=== PATIENT | female | born 1985 | race Hispanic/Latino ===

== ENCOUNTER 2017-05-13 22:35 | Emergency (ER) | payer OTHER, SELFPAY ==
[2017-05-13 23:46] LABS: BASOPHILS % (AUTO) 0.4 % (0.0-5.0); EOSINOPHILS % (AUTO) 0.3 % (0.0-8.0); HEMATOCRIT 41.9 % (36-48); LYMPHOCYTES % (AUTO) 21.9 % (21.0-51.0); MEAN CORPUSCULAR HEMOGLOBIN 30.4 pg (27.0-33.0); MEAN CORPUSCULAR HGB CONC 33.9 g/dL (32.0-36.0); MEAN CORPUSCULAR VOLUME 89.8 fL (79-99); MONOCYTES % (AUTO) 6.9 % (3.0-13.0); NEUTROPHILS % (AUTO) 70.5 % (40.0-77.0); PLATELET COUNT (AUTO) 240 K/uL (130-400); RED BLOOD CELL COUNT(AUTO) 4.67 MIL/uL (4.00-5.50); RED CELL DISTRIBUTION WIDTH 13.4 % (11.0-15.5); WHITE BLOOD COUNT (AUTO) 6.5 K/uL (4.8-10.8)
[2017-05-13 23:53] LABS: CREATININE 0.9 mg/dL (0.5-1.5)
[2017-05-13 23:55] LABS: APPEARANCE,URINE Clear (CLEAR); BILIRUBIN,URINE Negative (NEGATIVE); COLOR,URINE Yellow (YELLOW); GLUCOSE, URINE (UA) Negative (NEGATIVE); KETONES,URINE Trace mg/dL (NEGATIVE); LEUKOCYTE ESTERASE ,URINE Small (NEGATIVE); NITRATE,URINE Negative (NEGATIVE); OCCULT BLOOD,URINE Negative (NEGATIVE); PROTEIN,URINE Negative (NEGATIVE); UROBILINOGEN,URINE 0.2 mg/dL (0.2-1.0)
[2017-05-13 23:57] LABS: HCG,QUAL RESULT NEGATIVE (NEGATIVE)
[2017-05-13 23:57] LABS: ALBUMIN 4.1 g/dL (3.5-5.0); BILIRUBIN,TOTAL 0.2 mg/dL (0.2-1.0); TOTAL PROTEIN, SERUM 7.3 g/dL (6.0-8.3)
[2017-05-13] MEDS ORDERED: DiphenhydrAMINE HCL 50 MG/ML VIAL ONE (23:57)
[2017-05-13] MEDS ORDERED: PROCHLORPERAZINE EDISYLATE 10 MG/2 ML VIAL ONE (23:57)
[2017-05-13] MEDS ORDERED: SODIUM CHLORIDE 0.9% 500ML 500 ML IV ONE (23:57)
[2017-05-14 00:04] LABS: BACTERIA,URINE None Seen /HPF (None Seen); RBC,URINE None Seen /HPF (0-1); SQUAMOUS EPITHELIAL CELL,UR Rare /LPF (0-2); WBC,URINE 0-1 /HPF (0-1)
[2017-05-14] MEDS ORDERED: KETOROLAC TROMETHAMINE 30MG/ML ONE (01:04)
== END 2017-05-14 01:26 | disposition home or self-care (01) ==
LOC: EDH 22:35
DX: G43.909 Migraine, unspecified, not intractable, without status migrainosus (principal); J45.909 Unspecified asthma, uncomplicated; Z88.8 Allergy status to other drugs, medicaments and biological substances
CPT/HCPCS: 36415; 80053; 81001; 81025; 85025; 96374; 96375; 99284; J0780; J1200; J1885; J7040

== ENCOUNTER 2018-03-29 19:46 | Emergency (ER) | payer SELFPAY ==
[2018-03-29] MEDS ORDERED: SODIUM CHLORIDE 0.9% 1000ML 1,000 ML IV ONE (20:24)
[2018-03-29] MEDS ORDERED: METOCLOPRAMIDE 10 MG/2 ML VIAL ONE (20:24)
[2018-03-29] MEDS ORDERED: MORPHINE SULFATE 2 MG/ML 1ML SYG ONE (20:24)
[2018-03-29] MEDS ORDERED: ONDANSETRON HCL 4 MG/2 ML VIAL ONE (20:24)
[2018-03-29 20:42] LABS: BASOPHILS % (AUTO) 1.5 % (0.0-5.0); EOSINOPHILS % (AUTO) 0.8 % (0.0-8.0); HEMATOCRIT 43.2 % (36-48); LYMPHOCYTES % (AUTO) 37.2 % (21.0-51.0); MEAN CORPUSCULAR HGB CONC 34.6 g/dL (32.0-36.0); MEAN CORPUSCULAR VOLUME 89.6 fL (79-99); MONOCYTES % (AUTO) 7.9 % (3.0-13.0); NEUTROPHILS % (AUTO) 52.6 % (40.0-77.0); PLATELET COUNT (AUTO) 275 K/uL (130-400); RED BLOOD CELL COUNT(AUTO) 4.82 MIL/uL (4.00-5.50); RED CELL DISTRIBUTION WIDTH 13.6 % (11.0-15.5); WHITE BLOOD COUNT (AUTO) 4.2 K/uL (4.8-10.8)
[2018-03-29 20:58] LABS: CREATININE 0.7 mg/dL (0.5-1.5)
[2018-03-29 20:58] LABS: APPEARANCE,URINE CLEAR (CLEAR); BILIRUBIN,URINE NEGATIVE (NEGATIVE); COLOR,URINE YELLOW (YELLOW); GLUCOSE, URINE (UA) NEGATIVE (NEGATIVE); KETONES,URINE NEGATIVE (NEGATIVE); LEUKOCYTE ESTERASE ,URINE NEGATIVE (NEGATIVE); NITRATE,URINE NEGATIVE (NEGATIVE); OCCULT BLOOD,URINE NEGATIVE (NEGATIVE); PROTEIN,URINE NEGATIVE (NEGATIVE); UROBILINOGEN,URINE 0.2 mg/dL (0.2-1.0)
[2018-03-29 21:00] LABS: HCG,QUAL RESULT NEGATIVE (NEGATIVE)
[2018-03-29 21:09] LABS: BILIRUBIN,TOTAL 0.4 mg/dL (0.2-1.0); TOTAL PROTEIN, SERUM 7.5 g/dL (6.0-8.3)
[2018-03-29 21:10] LABS: ALBUMIN 4.4 g/dL (3.5-5.0)
[2018-03-29] MEDS ORDERED: IOHEXOL-350 75 ML VIAL IV ONE (21:23)
[2018-03-29] MEDS ORDERED: DiphenhydrAMINE HCL 50 MG/ML VIAL ONE (22:49)
== END 2018-03-29 23:18 | disposition home or self-care (01) ==
LOC: EDH 19:46
DX: E86.9 Volume depletion, unspecified (principal); R10.2 Pelvic and perineal pain; R11.2 Nausea with vomiting, unspecified; J45.909 Unspecified asthma, uncomplicated; G43.909 Migraine, unspecified, not intractable, without status migrainosus; Z98.890 Other specified postprocedural states
CPT/HCPCS: 36415; 74177; 80053; 81003; 81025; 83690; 85025; 96361; 96374; 96375; 99284; J1200; J2405; J2765; J7030; Q9967

== ENCOUNTER 2018-07-15 23:27 | Emergency (ER) | payer OTHER ==
[2018-07-16 01:02] LABS: BASOPHILS % (AUTO) 1.1 % (0.0-5.0); EOSINOPHILS % (AUTO) 3.5 % (0.0-8.0); HEMATOCRIT 43.3 % (36-48); LYMPHOCYTES % (AUTO) 36.5 % (21.0-51.0); MEAN CORPUSCULAR HEMOGLOBIN 30.4 pg (27.0-33.0); MEAN CORPUSCULAR HGB CONC 33.6 g/dL (32.0-36.0); MEAN CORPUSCULAR VOLUME 90.5 fL (79-99); NEUTROPHILS % (AUTO) 51.9 % (40.0-77.0); NUCLEATED RED BLOOD CELLS 0.1 % (0.0-0.19); PLATELET COUNT (AUTO) 260 K/uL (130-400); RED BLOOD CELL COUNT(AUTO) 4.79 MIL/uL (4.00-5.50); RED CELL DISTRIBUTION WIDTH 13.2 % (11.0-15.5); WHITE BLOOD COUNT (AUTO) 3.6 K/uL (4.8-10.8)
[2018-07-16 01:05] LABS: APPEARANCE,URINE Clear (CLEAR); BILIRUBIN,URINE Negative (NEGATIVE); COLOR,URINE Yellow (YELLOW); GLUCOSE, URINE (UA) Negative (NEGATIVE); KETONES,URINE Negative (NEGATIVE); LEUKOCYTE ESTERASE ,URINE Small (NEGATIVE); NITRATE,URINE Negative (NEGATIVE); OCCULT BLOOD,URINE Negative (NEGATIVE); PROTEIN,URINE Negative (NEGATIVE); UROBILINOGEN,URINE 0.2 mg/dL (0.2-1.0)
[2018-07-16 01:09] LABS: HCG,QUAL RESULT NEGATIVE (NEGATIVE)
[2018-07-16 01:10] LABS: CARBON DIOXIDE 22 mmol/L (21-32); CHLORIDE 105 mmol/L (101-111); CREATININE 0.6 mg/dL (0.5-1.5); GLOMERULAR FILTR. RATE CALC 124 mL/min (>60); GLUCOSE,RANDOM 83 mg/dL (70-105); POTASSIUM 4.4 mmol/L (3.5-5.1); SODIUM SERUM 136 mmol/L (136-145); UREA NITROGEN, BLOOD 15 mg/dL (7-18)
[2018-07-16 01:13] LABS: BACTERIA,URINE None Seen /HPF (None Seen); MUCUS,URINE Moderate LPF (None Seen); RBC,URINE 0-1 /HPF (0-1); SQUAMOUS EPITHELIAL CELL,UR Moderate /HPF (0-2)
[2018-07-16 01:15] LABS: ALANINE AMINOTRANSFERASE 18 U/L (12-78); ASPARTATE AMINOTRANSFERASE 36 U/L (10-37); BILIRUBIN,DIRECT < 0.1 mg/dL (0.0-0.3); BILIRUBIN,TOTAL 0.2 mg/dL (0.2-1.0); TOTAL PROTEIN, SERUM 7.6 g/dL (6.0-8.3)
[2018-07-16] MEDS ORDERED: KETOROLAC TROMETHAMINE 30MG/ML ONE (01:39)
[2018-07-16] MEDS ORDERED: IOHEXOL-350 75 ML VIAL IV ONE (01:44)
[2018-07-16] MEDS ORDERED: MORPHINE SULFATE 4 MG/1ML SYG ONE ×2 (04:52→05:25)
== END 2018-07-16 06:28 | disposition home or self-care (01) ==
LOC: EDH 23:27
DX: N83.201 Unspecified ovarian cyst, right side (principal); J45.909 Unspecified asthma, uncomplicated; G43.909 Migraine, unspecified, not intractable, without status migrainosus; Z88.8 Allergy status to other drugs, medicaments and biological substances
CPT/HCPCS: 36415; 74177; 76830; 76856; 80048; 80076; 81001; 81025; 85025; 96374; 96375; 96376; 99284; J1885; J2270 ×2; Q9967

== ENCOUNTER 2019-01-27 17:00 | Emergency (ER) | payer OTHER ==
[2019-01-27 17:20] LABS: APPEARANCE,URINE Clear (CLEAR); BILIRUBIN,URINE Negative (NEGATIVE); COLOR,URINE Yellow (YELLOW); GLUCOSE, URINE (UA) Negative (NEGATIVE); KETONES,URINE Negative (NEGATIVE); LEUKOCYTE ESTERASE ,URINE Trace (NEGATIVE); NITRATE,URINE Negative (NEGATIVE); OCCULT BLOOD,URINE Negative (NEGATIVE); PH,URINE 5.5 (5.0-8.0); PROTEIN,URINE Negative (NEGATIVE); UROBILINOGEN,URINE 0.2 mg/dL (0.2-1.0)
[2019-01-27 17:27] LABS: HCG,QUAL RESULT NEGATIVE (NEGATIVE)
[2019-01-27 17:28] LABS: AMPHET/METH SCREEN,URINE NEGATIVE (NEGATIVE); BARBITURATE SCREEN, URINE POSITIVE (NEGATIVE); BENZODIAZEPINES SCREEN,URINE NEGATIVE (NEGATIVE); CANNABINOID SCREEN,URINE NEGATIVE (NEGATIVE); COCAINE SCREEN,URINE NEGATIVE (NEGATIVE); OPIATE SCREEN,URINE NEGATIVE (NEGATIVE); PHENCYCLIDINE SCREEN,URINE NEGATIVE (NEGATIVE)
[2019-01-27] MEDS ORDERED: SODIUM CHLORIDE 0.9% 1000ML 1,000 ML IV ONE (17:28)
[2019-01-27] MEDS ORDERED: METOCLOPRAMIDE 10 MG/2 ML VIAL ONE (17:28)
[2019-01-27] MEDS ORDERED: KETOROLAC TROMETHAMINE 15MG/ML ONE (17:28)
[2019-01-27 17:37] LABS: BACTERIA,URINE Rare /HPF (None Seen); MUCUS,URINE Rare LPF (None Seen); RBC,URINE 0-1 /HPF (0-1); SQUAMOUS EPITHELIAL CELL,UR Few /HPF (0-2)
[2019-01-27 17:37] LABS: BASOPHILS % (AUTO) 0.9 % (0.0-5.0); EOSINOPHILS % (AUTO) 0.9 % (0.0-8.0); HEMATOCRIT 44.2 % (36-48); LYMPHOCYTES % (AUTO) 30.8 % (21.0-51.0); MEAN CORPUSCULAR HEMOGLOBIN 31.4 pg (27.0-33.0); MEAN CORPUSCULAR VOLUME 92.3 fL (79-99); NEUTROPHILS % (AUTO) 62.4 % (40.0-77.0); PLATELET COUNT (AUTO) 217 K/uL (130-400); RED BLOOD CELL COUNT(AUTO) 4.79 MIL/uL (4.00-5.50); RED CELL DISTRIBUTION WIDTH 13.7 % (11.0-15.5); WHITE BLOOD COUNT (AUTO) 4.5 K/uL (4.8-10.8)
[2019-01-27 17:47] LABS: CREATININE 0.8 mg/dL (0.5-1.5)
[2019-01-27 17:51] LABS: ALBUMIN 4.1 g/dL (3.5-5.0); BILIRUBIN,TOTAL 0.3 mg/dL (0.2-1.0); TOTAL PROTEIN, SERUM 7.7 g/dL (6.0-8.3)
== END 2019-01-27 20:34 | disposition home or self-care (01) ==
LOC: EDH 17:00
DX: R10.2 Pelvic and perineal pain (principal); J45.909 Unspecified asthma, uncomplicated; G43.909 Migraine, unspecified, not intractable, without status migrainosus; Z88.8 Allergy status to other drugs, medicaments and biological substances; Z98.890 Other specified postprocedural states
CPT/HCPCS: 36415; 76830; 80053; 80305; 81001; 81025; 83690; 85025; 96374; 96375; 99285; J1885; J2765; J7030

== ENCOUNTER 2023-10-28 20:05 | Emergency (ER) | payer OTHER ==
[~2023-10-28] VITALS: Ht 160 cm; Wt 49.0 kg
[2023-10-28 20:48] LABS: APPEARANCE,URINE CLEAR (CLEAR); BILIRUBIN,URINE NEGATIVE (NEGATIVE); COLOR,URINE COLORLESS (YELLOW); GLUCOSE, URINE (UA) NEGATIVE (NEGATIVE); KETONES,URINE NEGATIVE (NEGATIVE); LEUKOCYTE ESTERASE ,URINE NEGATIVE Leu/uL (NEGATIVE); NITRATE,URINE NEGATIVE (NEGATIVE); OCCULT BLOOD,URINE SMALL (NEGATIVE); PROTEIN,URINE NEGATIVE (NEGATIVE); UROBILINOGEN,URINE 0.2 mg/dL (0.2-1.0)
[2023-10-28 20:50] LABS: ADD UA MICROSCOPIC YES
[2023-10-28 21:02] LABS: BASOPHILS # (AUTO) 0.04 K/uL (0.00-0.20); BASOPHILS % (AUTO) 0.7 % (0.0-5.0); EOSINOPHILS # (AUTO) 0.12 K/uL (0.00-0.70); HEMATOCRIT 44.4 % (36-48); IMMATURE GRANULOCYTE ABSOLUTE 0.03 K/uL (0-1); LYMPHOCYTES # (AUTO) 2.1 K/uL (1.0-4.8); LYMPHOCYTES % (AUTO) 34.4 % (21.0-51.0); MEAN CORPUSCULAR HEMOGLOBIN 30.2 pg (27.0-33.0); MEAN CORPUSCULAR HGB CONC 33.6 g/dL (32.0-36.0); MEAN CORPUSCULAR VOLUME 89.9 fL (79-99); MONOCYTES # (AUTO) 0.4 K/uL (0.1-1.0); MONOCYTES % (AUTO) 5.8 % (3.0-13.0); NEUTROPHILS # (AUTO) 3.4 K/uL (1.8-7.7); NEUTROPHILS % (AUTO) 56.6 % (40.0-77.0); PLATELET COUNT (AUTO) 289 K/uL (130-400); RED BLOOD CELL COUNT(AUTO) 4.94 MIL/uL (4.00-5.50); RED CELL DISTRIBUTION WIDTH 12.6 % (11.0-15.5)
[2023-10-28 21:04] LABS: RBC,URINE 0-1 /HPF (0-1); SQUAMOUS EPITHELIAL CELL,UR FEW /HPF (0-2); WBC,URINE 0-1 /HPF (0-1)
[2023-10-28] MEDS: 0.9%NACL 1000ML 1,000 ML IV ONE (21:10)
[2023-10-28] MEDS: KETOROLAC 30MG VIAL (30MG/ML) IVP ONE (21:10)
[2023-10-28 21:16] LABS: CREATININE 0.8 mg/dL (0.5-1.0); POTASSIUM 4.1 mmol/L (3.5-5.1)
[2023-10-28] MEDS ORDERED: IBUP-2071 PO (21:46)
[2023-10-28] MEDS: ONDANSETRON 4MG INJ IVP ONE (22:08)
[2023-10-28] MEDS: MORPHINE 2 MG SYG IVP ONE (22:08)
[2023-10-28] MEDS: HYDROCODONE/ACETAMINOPHEN 5/325 MG TAB PO ONE (22:52)
[2023-10-28] MEDS: KETOROLAC 15MG/ML VIAL (15MG/ML) IV ONE (22:52)
[2023-10-28 23:05] VITALS: BP 119/78; PULSE 74; RESP 20; O2SAT 98
== END 2023-10-28 23:13 | disposition home or self-care (01) ==
LOC: EDH 20:05
DX: N83.201 Unspecified ovarian cyst, right side (principal); J45.909 Unspecified asthma, uncomplicated; G43.909 Migraine, unspecified, not intractable, without status migrainosus; Z98.890 Other specified postprocedural states; Z88.0 Allergy status to penicillin; Z88.8 Allergy status to other drugs, medicaments and biological substances
CPT/HCPCS: 99285; 96374; 76856; 96375; 80048; 84703; 85025; 81001; 36415; 96376; J2270; J7030; J2405; J1885 ×2

== ENCOUNTER 2023-10-30 22:51 | Emergency (ER) | payer OTHER ==
[~2023-10-30] VITALS: Ht 162.6 cm; Wt 48.5 kg
[~2023-10-30 22:51] MED LIST: IBUP-2071 PO
[2023-10-31 00:26] LABS: APPEARANCE,URINE CLEAR (CLEAR); BILIRUBIN,URINE NEGATIVE (NEGATIVE); COLOR,URINE COLORLESS (YELLOW); GLUCOSE, URINE (UA) NEGATIVE (NEGATIVE); KETONES,URINE NEGATIVE (NEGATIVE); LEUKOCYTE ESTERASE ,URINE NEGATIVE Leu/uL (NEGATIVE); NITRATE,URINE NEGATIVE (NEGATIVE); OCCULT BLOOD,URINE NEGATIVE (NEGATIVE); PROTEIN,URINE NEGATIVE (NEGATIVE); UROBILINOGEN,URINE 0.2 mg/dL (0.2-1.0)
[2023-10-31 00:28] LABS: ADD UA MICROSCOPIC NO
[2023-10-31 00:39] LABS: BASOPHILS # (AUTO) 0.05 K/uL (0.00-0.20); BASOPHILS % (AUTO) 0.7 % (0.0-5.0); EOSINOPHILS % (AUTO) 2.9 % (0.0-8.0); HEMATOCRIT 38.3 % (36-48); IMMATURE GRANULOCYTE ABSOLUTE 0.06 K/uL (0-1); LYMPHOCYTES # (AUTO) 2.3 K/uL (1.0-4.8); LYMPHOCYTES % (AUTO) 34.2 % (21.0-51.0); MEAN CORPUSCULAR HEMOGLOBIN 30.1 pg (27.0-33.0); MEAN CORPUSCULAR HGB CONC 33.9 g/dL (32.0-36.0); MEAN CORPUSCULAR VOLUME 88.7 fL (79-99); MONOCYTES # (AUTO) 0.5 K/uL (0.1-1.0); MONOCYTES % (AUTO) 7.6 % (3.0-13.0); NEUTROPHILS # (AUTO) 3.7 K/uL (1.8-7.7); NEUTROPHILS % (AUTO) 53.7 % (40.0-77.0); PLATELET COUNT (AUTO) 268 K/uL (130-400); RED BLOOD CELL COUNT(AUTO) 4.32 MIL/uL (4.00-5.50); RED CELL DISTRIBUTION WIDTH 12.8 % (11.0-15.5); WHITE BLOOD COUNT (AUTO) 6.8 K/uL (4.8-10.8)
[2023-10-31 00:40] LABS: HCG,QUALITATIVE URINE NEGATIVE (NEGATIVE)
[2023-10-31 00:47] LABS: CREATININE 0.7 mg/dL (0.5-1.0); POTASSIUM 3.7 mmol/L (3.5-5.1)
[2023-10-31 00:52] LABS: ALBUMIN 3.8 g/dL (3.5-5.0); BILIRUBIN,TOTAL 0.1 mg/dL (0.2-1.0); TOTAL PROTEIN, SERUM 7.1 g/dL (6.0-8.3)
[2023-10-31] MEDS: ONDANSETRON 4MG INJ IVP ONE (04:27)
[2023-10-31] MEDS: KETOROLAC 30MG VIAL (30MG/ML) IVP ONE (04:27)
[2023-10-31] MEDS: 0.9%NACL 1000ML 1,000 ML IV ONE (04:28)
[2023-10-31] MEDS: MORPHINE 4 MG SYG IVP ONE ×2 (04:28→08:12)
[2023-10-31] MEDS ORDERED: IOHEXOL 350 MG/ML 100ML INFUS..BTL IV ONE (06:32)
[2023-10-31] MEDS: DOXYCYCLINE HYCLATE 100 MG TABLET PO SCH (10:09)
[2023-10-31] MEDS: CEFTRIAXONE 1G VIAL IVPB ONE (10:10)
[2023-10-31 10:23] VITALS: BP 105/62; PULSE 68; RESP 18; O2SAT 98
[2023-10-31] MEDS ORDERED: DOXY100C61 PO (11:02)
[2023-10-31] MEDS ORDERED: ONDA-243 PO (11:02)
== END 2023-10-31 11:19 | disposition home or self-care (01) ==
LOC: EDH 22:51
DX: N83.209 Unspecified ovarian cyst, unspecified side (principal); J45.909 Unspecified asthma, uncomplicated; G43.909 Migraine, unspecified, not intractable, without status migrainosus; Z88.8 Allergy status to other drugs, medicaments and biological substances; Z79.899 Other long term (current) drug therapy; Z90.721 Acquired absence of ovaries, unilateral; Z98.890 Other specified postprocedural states
CPT/HCPCS: 99285; 76856; 80053; 85025; 87210; 87491; 87591; 81003; 81025; 36415; 74177; 96365; 96375; 96361; 96376; J7030; J0696; J2405; J2270 ×2; J1885; Q9967

== ENCOUNTER 2024-10-01 23:53 | Emergency (ER) | payer SELFPAY ==
[~2024-10-01] VITALS: Ht 160 cm; Wt 54.4 kg
[~2024-10-01 23:53] MED LIST changes: +DOXY-466 PO; +ONDA-243 PO
--- NOTE | 2024-10-02 00:42 | ERN ---
ED Note History of Present Illness Stated Complaint: TOOTHACHE, HEADACHE, DIZZINESS Chief Complaint: Multiple Complaints Time Seen by MD: 00:41 Time Seen by Midlevel: 00:42 Dictation: Ms. Leigh is a 39 year old female with history of migraine headaches, asthma, and dental infections who presented to the emergency department this evening for evaluation of headache. She reports several days of fatigue, general weakness, chills, and dental pain. She states that she had a a tooth extraction and completed a course of antibiotics recently. She now has a throbbing headache which she rates 10/10 and is feeling dizzy. She reports nausea. She states she has had poor food/fluid intake. She denies fever, shortness of breath, cough, chest pain, palpitations, edema, abdominal pain,vomiting, hematemesis, constipation, diarrhea, melena, hematochezia, dysuria, or focal weakness/paresthesia. Allergies: Coded Allergies: Ampicillin Sodium (Verified Allergy, 04/29/12) Sulbactam Sodium (Verified Allergy, 04/29/12) Home Meds Active Scripts Ibuprofen (Ibuprofen) 600 Mg Tablet, 600 MG PO Q6H PRN for PAIN, #12 TAB 0 Refills Prov:TRACY CARPENTER NP 10/02/24 Ondansetron (Ondansetron Odt) 4 Mg Tab.rapdis, 4 MG PO Q6HPRN PRN for nausea, #15 TAB 0 Refills Prov:TRACY CARPENTER NP 10/02/24 Clindamycin HCl (Clindamycin HCl) 300 Mg Capsule, 1 CAP PO TID for 7 Days, #21 CAP 0 Refills Prov:TRACY CARPENTER NP 10/02/24 Ondansetron (Ondansetron Odt) 4 Mg Tab.rapdis, 4 MG PO TIDP PRN for NAUSEA, #30 TAB 0 Refills Prov:BLADIMIR WILKINS MD 10/31/23 Doxycycline Monohydrate (Doxycycline Monohydrate) 100 Mg Capsule, 1 CAP PO BID for 10 Days, #20 CAP 0 Refills Prov:BLADIMIR WILKINS MD 10/31/23 Ibuprofen (Ibuprofen) 800 Mg Tablet, 800 MG PO Q8H PRN for PAIN, #30 TAB 0 Refills Prov:LINDA CARTAGENA NP 10/28/23 Past Medical History Past Medical History: Asthma, Migraines Surgical History: Other Surgical History Other: LEFT OVARY REMOVED PSYCH History: no pertinent psych hx Social History: Negative, Lives with family History: Not Applicable RN Note Reviewed/Agreed w/PFSH: Yes Review of System Dictation REVIEW OF SYSTEMS: CONSTITUTIONAL: Patient denies fevers, chills, sweats and weight changes. Reports fatigue, general weakness. EYES: Patient denies any visual symptoms. EARS, NOSE, AND THROAT: No difficulties with hearing. No symptoms of rhinitis or sore throat. Reports dental pain/broken tooth. CARDIOVASCULAR: Patient denies chest pains, palpitations, orthopnea and paroxysmal nocturnal dyspnea. Reported low blood pressure readings. RESPIRATORY: No dyspnea on exertion, no wheezing or cough. GI: No vomiting, diarrhea, constipation, abdominal pain, hematochezia or melena. Reports nausea. Reports poor fluid and food intake. : No urinary hesitancy or dribbling. No nocturia or urinary frequency. No abnormal urethral discharge. MUSCULOSKELETAL: No myalgias or arthralgias. NEUROLOGIC: No chronic headaches, no seizures. Patient denies numbness, tingling or weakness. Reports headache, photophobia, and dizziness. PSYCHIATRIC: Patient denies problems with mood disturbance. No problems with anxiety. ENDOCRINE: No excessive urination or excessive thirst. DERMATOLOGIC: Patient denies any rashes or skin changes. Initial Vital Sign VS Vital Signs Date Time Temp Pulse Resp B/P (MAP) Pulse Ox O2 Delivery O2 Flow Rate FiO2 10/01/24 23:55 97.9 65 18 98/69 99 Room Air 10/02/24 00:09 0 21 Physical Exam Dictation Vital signs: Reviewed. Afebrile Constitutional: Uncomfortable Head/Face: Normocephalic, atraumatic. Eyes: Periorbital areas with no swelling, redness, or edema. Lids and lashes are normal. Conjunctival injection is absent. Sclera anicteric. Pupils equal, round, reactive to light. ENT: Pinnas intact and no signs of trauma or erythema. Ear canals clear and no discharge. TMs no erythema. No nasal discharge or bleeding noted. Oropharynx with no exudate, redness, swelling, masses, exudates, or evidence of obstruction. Uvula midline. Mucous membranes dry. Left molar broken with inflamed gum. She also has cracked/broken tooth right canine. Neck: Trachea midline, no masses palpated, and no cervical lymphadenopathy. No swelling. Supple, full range of motion. Chest/Axilla: No tenderness, no crepitus, no paradoxical movement, no retractions. Cardiovascular: Regular rate, regular rhythm, no murmur, no gallops. Symmetric pulses. No peripheral edema. manager monitoring reflecting sinus rhythm. BP 98/69 Respiratory: Respirations even and unlabored. Lung sounds clear; no wheezes, rales or rhonchi. Room air SpO2 98% Gastrointestinal: Inspection is normal. No distention is appreciated. Bowel sounds are normal. No mass or organomegaly . There is no tenderness. No rebound. No rigidity. No voluntary or involuntary guarding. No Tipton's sign. : Has not yet voided. Negative CVA tenderness bilaterally. Neurological: Normal speech, gross motor function intact, gross sensory function intact. No focal weakness/Paresthesia. Musculoskeletal/Extremities: All extremities have full range of motion, no pain or tenderness on palpation. Symmetric pulses. Integumentary: Intact. Skin is normal color, warm and dry. Cap refill less than 2 seconds. Results (Laboratory/Radiology) Laboratory/Radiology Laboratory Tests Test 10/02/24 02:10 White Blood Count 5.7 K/uL (4.8-10.8) Red Blood Count 4.10 MIL/uL (4.00-5.50) Hemoglobin 12.5 g/dL (12.0-16.0) Hematocrit 37.4 % (36-48) Mean Corpuscular Volume 91.2 fL (79-99) Mean Corpuscular Hemoglobin 30.5 pg (27.0-33.0) Mean Corpuscular Hemoglobin Concent 33.4 g/dL (32.0-36.0) Red Cell Distribution Width 13.6 % (11.0-15.5) Platelet Count 212 K/uL (130-400) Mean Platelet Volume 11.6 fL (7.5-10.5) H Immature Granulocyte % (Auto) 0.2 % (0-1) Neutrophils (%) (Auto) 51.5 % (40.0-77.0) Lymphocytes (%) (Auto) 39.6 % (21.0-51.0) Monocytes (%) (Auto) 6.9 % (3.0-13.0) Eosinophils (%) (Auto) 1.1 % (0.0-8.0) Basophils (%) (Auto) 0.7 % (0.0-5.0) Neutrophils # (Auto) 2.9 K/uL (1.8-7.7) Lymphocytes # (Auto) 2.2 K/uL (1.0-4.8) Monocytes # (Auto) 0.4 K/uL (0.1-1.0) Eosinophils # (Auto) 0.06 K/uL (0.00-0.70) Basophils # (Auto) 0.04 K/uL (0.00-0.20) Absolute Immature Granulocyte (auto 0.01 K/uL (0-1) Nucleated Red Blood Cells 0.0 % (0.0-0.19) Sodium Level 141 mmol/L (136-145) Potassium Level 3.5 mmol/L (3.5-5.1) Chloride Level 110 mmol/L (101-111) Carbon Dioxide Level 21 mmol/L (21-32) Blood Urea Nitrogen 9 mg/dL (7-18) Creatinine 0.4 mg/dL (0.5-1.0) L Glomerular Filtration Rate Calc 131 mL/min (>90) Random Glucose 83 mg/dL (70-105) Total Calcium 7.3 mg/dL (8.5-10.1) L ED Course ED Course Orders Procedure Category Date Status Time Hydrocodone/Apap PHA 10/02/24 Complete 10/325 Tab (Barre 10) 01:00 Ondansetron Odt 4mg PHA 10/02/24 Complete Tab (Zofran 4mg Odt) 01:00 Clindamycin 150mg Cap PHA 10/02/24 Complete (Cleocin 150mg Cap 01:00 0.9%Nacl 1000ml (Ns PHA 10/02/24 Complete 1000ml) 01:00 Ondansetron 4mg Inj PHA 10/02/24 Complete (Zofran 4mg Inj) 01:00 Clindamycin Ivpb PHA 10/02/24 Complete 300mg/50ml (Cleocin 01:00 Hydromorphone 0.5mg PHA 10/02/24 Complete Syg (Dilaudid 0.5mg 01:30 Cbc With Differential LAB 10/02/24 Complete 01:49 Basic Metabolic Panel LAB 10/02/24 Complete 01:49 Diphenhydramine Hcl PHA 10/02/24 Complete (Benadryl Inj) 02:00 Metoclopramide 10 PHA 10/02/24 Complete Mg/2 Ml Vial (Reglan 1 02:00 Ketorolac PHA 10/02/24 Complete Tromethamine 15mg/Ml 02:00 Hydromorphone 0.5mg PHA 10/02/24 Complete Syg (Dilaudid 0.5mg 03:00 Hydromorphone 0.5mg PHA 10/02/24 Complete Syg (Dilaudid 0.5mg 03:00 0.9% Nacl 500ml PHA 10/02/24 Complete Iv.Soln (Ns 500ml 03:00 Current Medications Medications (Trade) Dose Ordered Sig/Jitendra Route PRN Reason Start Time Stop Time Status Last Admin Dose Admin Acetaminophen/ Hydrocodone Bitart (NORco 10) 1 tab ONCE ONCE PO 10/02/24 01:00 10/02/24 00:51 DC Clindamycin HCl (Cleocin 150mg Cap) 300 mg ONCE ONCE PO 10/02/24 01:00 10/02/24 00:51 DC Clindamycin HCl/ Dextrose 50 ml @ 100 mls/hr Q8H IV 10/02/24 01:00 10/02/24 04:35 DC 10/02/24 01:05 Diphenhydramine HCl (BENAdryl INJ) 25 mg ONCE ONCE IV 10/02/24 02:00 10/02/24 02:01 DC 10/02/24 02:18 Hydromorphone HCl (DiLAUDid 0.5MG INJ) 0.2 mg ONCE ONCE IVP 10/02/24 03:00 10/02/24 03:15 DC Hydromorphone HCl (DiLAUDid 0.5MG INJ) 0.2 mg ONCE ONCE IVP 10/02/24 03:00 10/02/24 03:15 DC 10/02/24 03:23 Hydromorphone HCl (DiLAUDid 0.5MG INJ) 0.5 mg ONCE ONCE IVP 10/02/24 01:30 10/02/24 01:31 DC 10/02/24 01:09 Ketorolac Tromethamine (toRADol) 15 mg ONCE ONCE IV 10/02/24 02:00 10/02/24 02:01 DC 10/02/24 02:15 Metoclopramide HCl (regLAN 10MG IV) 10 mg ONCE ONCE IVP 10/02/24 02:00 10/02/24 02:01 DC 10/02/24 02:16 Ondansetron HCl (zoFRAN 4MG INJ) 4 mg ONCE ONCE IVP 10/02/24 01:00 10/02/24 01:01 DC 10/02/24 01:05 Ondansetron HCl (zoFRAN 4MG ODT) 4 mg ONCE ONCE SL 10/02/24 01:00 10/02/24 00:51 DC Sodium Chloride 500 ml @ 0 mls/hr ONCE ONCE IV 10/02/24 03:00 10/02/24 03:14 DC 10/02/24 03:40 Sodium Chloride 1,000 ml @ 0 mls/hr ONCE ONCE IV 10/02/24 01:00 10/02/24 01:01 DC 10/02/24 01:05 Vital Signs Date Time Temp Pulse Resp B/P (MAP) Pulse Ox O2 Delivery O2 Flow Rate FiO2 10/02/24 04:24 97.5 75 17 103/57 97 Room Air* 0 10/02/24 03:45 63 17 97/66 98 Room Air* 0 10/02/24 02:55 64 16 116/68 98 Room Air* 0 10/02/24 01:35 97.0 65 17 93/52 98 Room Air* 0 21 10/02/24 00:09 68 16 105/64 98 Room Air* 0 10/01/24 23:55 97.9 65 18 98/69 99 Room Air Patient has multiple broken/infected teeth to both sides of the mouth. No angioedema. No difficulty swallowing. Initially soft blood pressure; normotensive following NS 1500 mL IV bolus. She complains of throbbing headache as well as photophobia which she received doses Reglan, Benadryl, and Toradol. Pain persisted and she received doses Zofran and Dilaudid. She received clindamycin 300 mg IV (PCN allergy). Laboratory findings as noted below. No elevation of WBC, H/H stable, and no electrolyte derangement. Signed out to ED attending, Dr. Carie Francisco, at 0316. Medical Decision Making MDM MDM: Differential diagnosis: Migraine headache, dental infection/abscess, dehydration, electrolyte derangement Rationale: Tests considered and ordered secondary to shared decision making include: Lab Previous outside records reviewed: Old ER visits. Risk of complication and/or morbidity or mortality of patient management: None Medications-Per medication reconciliation Need for hospitalization: Patient does not meet criteria for hospitalization. Need for emergency major/minor surgery: No There are no social concerns with this patient. Prescription drug management: Clindamycin, ibuprofen, Zofran Prescriptions will include symptomatic care Patient's prior external medical records from other ER visits were reviewed by me as indicated. Prior testing and results from previous visits were reviewed. Prior tests were taken into account with medical decision making and resource utilization, independent historian/historians were used to obtain complete medical history. I independently interpreted the test that were performed, results were reviewed by me and considered findings on radiology if ordered. Medical management and examination interpretation discussions were had by me with other qualified healthcare professionals as indicated for the patient's care. DX & DISP Disposition: Discharge Departure Impression: Primary Impression: Dental infection Additional Impression: Migraine headache Condition: Stable Scripts Ibuprofen (Ibuprofen) 600 Mg Tablet 600 MG PO Q6H PRN for PAIN, #12 TAB 0 Refills Prov: TRACY CARPENTER NP 10/02/24 Ondansetron (Ondansetron Odt) 4 Mg Tab.rapdis 4 MG PO Q6HPRN PRN for nausea, #15 TAB 0 Refills Prov: TRACY CARPENTER FILLER MIXER 10/02/24 Clindamycin HCl (Clindamycin HCl) 300 Mg Capsule 1 CAP PO TID for 7 Days, #21 CAP 0 Refills Prov: TRACY CARPENTER FILLER MIXER 10/02/24 Additional Instructions: Continue clindamycin 300 mg 3 times daily; take until gone. Take pain relievers such as Tylenol or ibuprofen as needed. Rinse your mouth gently with warm salt water 2-3 times daily. Avoid chewing on affected tooth. Follow up with dentist early next week for evaluation. Return to the emergency department if you have worsening of symptoms: Swelling spreading to your neck/face/eye. You develop fever, difficulty swallowing, or difficulty breathing. You experience persistent vomiting or severe pain. For headache rest in a dark, quiet room and stay well hydrated. Avoid known triggers such as stress, lack of sleep, or caffeine. Return to the ER if you have sudden severe headache (worst headache of your life ), vision changes, confusion, trouble speaking, weakness/numbness, or headache with fever/neck stiffness/persistent vomiting. Follow up with your primary care physician for migraine management. You may benefit from referral to neurologist should headaches continue. Referrals: SARAH VÁZQUEZ MD (PCP) Time of Disposition: 03:10 TRACY CARPENTER NP Oct 02, 2024 00:42
[2024-10-02] MEDS ORDERED: ondanSETRON ODT 4MG TAB SL ONE (01:00)
[2024-10-02] MEDS ORDERED: CLINDAMYCIN 150 MG CAP PO ONE (01:00)
[2024-10-02] MEDS ORDERED: HYDROcodone/acetaMINOPHEN 10/325 MG TAB PO ONE (01:00)
[2024-10-02] MEDS: ondanSETRON 4MG INJ IVP ONE (01:05)
[2024-10-02] MEDS: CLINDAMYCIN IVPB 300MG/50ML 50 ML IV SCH (01:05)
[2024-10-02] MEDS: 0.9%NACL 1000ML 1,000 ML IV ONE (01:05)
[2024-10-02] MEDS: hydroMORPHone 0.5 MG SYG (0.5MG/0.5ML) IVP ONE ×2 (01:09→03:23)
--- NOTE | 2024-10-02 01:33 | NUR ---
PT CARE ASSUMED AT THIS TIME
[2024-10-02] MEDS: ketOROlac 15MG/ML VIAL (15MG/ML) IV ONE (02:15)
[2024-10-02] MEDS: metoCLOPRAmide 10 MG/2 ML VIAL IVP ONE (02:16)
[2024-10-02 02:18] LABS: BASOPHILS # (AUTO) 0.04 K/uL (0.00-0.20); BASOPHILS % (AUTO) 0.7 % (0.0-5.0); EOSINOPHILS # (AUTO) 0.06 K/uL (0.00-0.70); EOSINOPHILS % (AUTO) 1.1 % (0.0-8.0); HEMATOCRIT 37.4 % (36-48); IMMATURE GRANULOCYTE ABSOLUTE 0.01 K/uL (0-1); LYMPHOCYTES # (AUTO) 2.2 K/uL (1.0-4.8); LYMPHOCYTES % (AUTO) 39.6 % (21.0-51.0); MEAN CORPUSCULAR HEMOGLOBIN 30.5 pg (27.0-33.0); MEAN CORPUSCULAR HGB CONC 33.4 g/dL (32.0-36.0); MEAN CORPUSCULAR VOLUME 91.2 fL (79-99); MONOCYTES # (AUTO) 0.4 K/uL (0.1-1.0); MONOCYTES % (AUTO) 6.9 % (3.0-13.0); NEUTROPHILS # (AUTO) 2.9 K/uL (1.8-7.7); NEUTROPHILS % (AUTO) 51.5 % (40.0-77.0); PLATELET COUNT (AUTO) 212 K/uL (130-400); RED CELL DISTRIBUTION WIDTH 13.6 % (11.0-15.5); WHITE BLOOD COUNT (AUTO) 5.7 K/uL (4.8-10.8)
[2024-10-02] MEDS: DiphenhydrAMINE HCL 50 MG/ML VIAL IV ONE (02:18)
[2024-10-02 02:32] LABS: CREATININE 0.4 mg/dL (0.5-1.0); POTASSIUM 3.5 mmol/L (3.5-5.1)
[2024-10-02] MEDS ORDERED: hydroMORPHone 0.5 MG SYG (0.5MG/0.5ML) IVP ONE (03:00)
[2024-10-02] MEDS ORDERED: IBUP-2070 PO (03:07)
[2024-10-02] MEDS ORDERED: CLIN-141 PO (03:07)
[2024-10-02] MEDS ORDERED: ONDA-243 PO (03:07)
--- NOTE | 2024-10-02 03:35 | NUR ---
PT PLACED ON BEDPAN IN ATTEMPT TO COLLECT URINE SAMPLE. PT TAKEN OFF BEDPAN AND URINE COLLECTION NOT SUCCESSFUL.
[2024-10-02] MEDS: 0.9% NACL 500ML IV.SOLN 500 ML IV ONE (03:40)
[2024-10-02 04:24] VITALS: BP 103/57; PULSE 75; RESP 17; TEMP 97.5; O2SAT 97
== END 2024-10-02 04:35 | disposition home or self-care (01) ==
LOC: EDH 10-02 00:09
DX: K04.7 Periapical abscess without sinus (principal); G43.909 Migraine, unspecified, not intractable, without status migrainosus; J45.909 Unspecified asthma, uncomplicated; Z90.721 Acquired absence of ovaries, unilateral; Z79.899 Other long term (current) drug therapy
CPT/HCPCS: 99285; 96375; 96365; 96366; 80048; 85025; 36415; 96376; J1885; J7040; J1200; J7030; J2405; J2765; J3490; J1171 ×2

== ENCOUNTER 2024-11-29 12:22 | Emergency (ER) | payer SELFPAY ==
[~2024-11-29] VITALS: Ht 160 cm; Wt 56.2 kg
[~2024-11-29 12:22] MED LIST changes: +CLIN-141 PO; +IBUP-1492 PO
--- NOTE | 2024-11-29 14:05 | ERN ---
General Chief Complaint: Breast Problem Stated Complaint: BREAST PAIN Time Seen by MD: 12:26 Source: patient History of Present Illness Initial Comments IS A 39-YEAR-OLD FEMALE COMING IN COMPLAINING OF LEFT BREAST PAIN. PATIENT STATES THAT THIS PAIN HAS BEEN SEEN BY ULTRASOUND WAS PERFORMED WAS NEGATIVE. Allergies: Coded Allergies: Ampicillin Sodium (Verified Allergy, 04/29/12) Sulbactam Sodium (Verified Allergy, 04/29/12) Home Meds Active Scripts Ibuprofen (Ibuprofen) 600 Mg Tablet, 600 MG PO Q6H PRN for PAIN, #12 TAB 0 Refills Prov:TRACY CARPENTER NP 10/02/24 Ondansetron (Ondansetron Odt) 4 Mg Tab.rapdis, 4 MG PO Q6HPRN PRN for nausea, #15 TAB 0 Refills Prov:TRACY CARPENTER NP 10/02/24 Clindamycin HCl (Clindamycin HCl) 300 Mg Capsule, 1 CAP PO TID for 7 Days, #21 CAP 0 Refills Prov:TRACY CARPENTER NP 10/02/24 Ondansetron (Ondansetron Odt) 4 Mg Tab.rapdis, 4 MG PO TIDP PRN for NAUSEA, #30 TAB 0 Refills Prov:BLADIMIR WILKINS MD 10/31/23 Doxycycline Monohydrate (Doxycycline Monohydrate) 100 Mg Capsule, 1 CAP PO BID for 10 Days, #20 CAP 0 Refills Prov:BLADIMIR WILKINS MD 10/31/23 Ibuprofen (Ibuprofen) 800 Mg Tablet, 800 MG PO Q8H PRN for PAIN, #30 TAB 0 Refills Prov:LINDA CARTAGENA NP 10/28/23 Past Medical History Past Medical History: Asthma, Migraines Past Surgical History: Other Surgical History Other: LEFT OVARY REMOVED Social History Social History: Negative, Lives with family Female( History) History: Not Applicable LMP: Nov 15, 2024 ROS Dictation CONSTITUTIONAL: NO CHILLS, NO FEVER, NO WEAKNESS, NO DIAPHORESIS, NO MALAISE. HEAD/FACE: NO SIGNS OF TRAUMA. EENT: NO EYE PAIN, NO BLURRED VISION, NO TEARING, NO DOUBLE VISION, NO EAR PAIN, NO EAR DISCHARGE, NO NOSE PAIN, NO NASAL CONGESTION, NO THROAT PAIN, NO THROAT SWELLING, NO MOUTH PAIN. RESPIRATORY: NO COUGH, NO ORTHOPNEA, NO SOB, NO STRIDOR, NO WHEEZING. CARDIOVASCULAR: NO CHEST PAIN, NO EDEMA, NO PALPITATIONS, NO SYNCOPE. GASTROINTESTINAL/ABDOMINAL: NO ABDOMINAL PAIN, NO CONSTIPATION, NO DIARRHEA, NO NAUSEA, NO VOMITING. GENITOURINARY: NO ABNORMAL DISCHARGE, NO DYSURIA, NO FREQUENT URINATION, NO HEMATURIA. NO COMPLAINTS OF PAIN IN THE GENITALS. MUSCULOSKELETAL: NO BACK PAIN, NO GOUT, NO JOINT PAIN, NO JOINT SWELLING, NO MUSCLE PAIN, NO MUSCLE STIFFNESS, NO NECK PAIN. INTEGUMENTARY: NO CHANGE IN COLOR, NO CHANGE IN HAIR/NAILS, NO DRYNESS, NO LESION, NO LUMPS, NO RASH. NEUROLOGICAL/PSYCH: NO ANXIETY, NOT DEPRESSED, NO EMOTIONAL PROBLEM, NO HEADACHE, NO NUMBNESS, NO PRE-EXISTING DEFICIT, NO HISTORY OF SEIZURES, NO TREMORS, NO WEAKNESS. HEMATOLOGIC/LYMPHATIC: NOT ANEMIC, NO HISTORY OF BLOOD CLOTS, NO APPARENT BLEEDING, NO BRUISING, GLANDS NOT SWOLLEN. ALL SYSTEMS NEGATIVE, EXCEPT NOTED. Physical Exam Physical Exam Dictation VITAL SIGNS: REVIEWED. GENERAL APPEARANCE: ALERT, ORIENTED X3, NO ACUTE DISTRESS, OBESE. HEAD AND FACE: NON-TRAUMATIC. EYES: PERRL, PINK CONJUNCTIVAS, EYELID NO TRAUMA, ANTERIOR CHAMBER CLEAR. EARS: PINNAS INTACT AND NO SIGNS OF TRAUMA OR ERYTHEMA. EAR CANALS CLEAR AND NO DISCHARGE. TMS NO ERYTHEMA. NOSE: NO DISCHARGE, NO BLEEDING. OROPHARYNX: MOUTH NORMAL, TEETH NO CARIES, TONGUE PINK. PHARYNX CLEAR, NO E RYTHEMA. TONSILS NO EXUDATES, NO ABSCESSES NOTED. MUCOUS MEMBRANE MOIST. NECK: SUPPLE, NON-TENDER, NO THYROMEGALY, NO MASSES, NO JVD, NO BRUITS. BREAST: LEFT BREAST PAIN ON PALPATION, CHAPERONED BY NURSE LEFT LATERAL FIBROID CHANGES CHEST: NO TENDERNESS, NO CREPITUS, NO PARADOXICAL MOVEMENT, NO RETRACTIONS. LUNGS: CLEAR, WELL-VENTILATED, SYMMETRIC, NO RALES, NO WHEEZING, NO RHONCHI, NO STRIDOR, GOOD BREATH SOUNDS BILATERALLY. HEART: REGULAR RATE, REGULAR RHYTHM, NO MURMUR, NO GALLOPS. VASCULAR: NO PERIPHERAL EDEMA. ABDOMEN: SOFT, POSITIVE BOWEL SOUNDS, NONDISTENDED, NO GUARDING, NONTENDER, NO REBOUND, NO MASSES NO HEPATOMEGALY, NO SPLENOMEGALY, NO MONAE'S SIGN, NO HERNIAS. RECTAL: DEFERRED. GENITAL: DEFERRED. NEUROLOGICAL: NORMAL SPEECH, GROSS MOTOR FUNCTION INTACT, GROSS SENSORY FUNCTION INTACT. MUSCULOSKELETAL: NECK NONTENDER, FULL RANGE OF MOTION, BACK NONTENDER, FULL RANGE OF MOTION. EXTREMITIES: NONTENDER, FULL RANGE OF MOTION. SKIN: COLOR PINK, DRY, NO TURGOR, NO RASH, NO LACERATIONS, NO ABRASIONS, NO CONTUSIONS. LYMPHATICS: DEFERRED. Results Laboratory and Microbiology Lab and Micro Result Laboratory Tests Test 11/29/24 15:05 Urine HCG, Qualitative NEGATIVE (NEGATIVE) Labs Reviewed?: Yes EKG/XRAY/US/CT/MRI EKG Comment 02/2025 TIME 3:54 P.M. VENTRICULAR RATE 60 [address] WAVE ELEVATION OR DEPRESSION MDM MDM: DIFFERENTIAL DIAGNOSIS: FIBROCYSTIC CHANGES, BREAST PAIN, RATIONALE: TESTS CONSIDERED AND ORDERED SECONDARY TO SHARED DECISION MAKING INCLUDE: PREVIOUS OUTSIDE RECORDS REVIEWED: OLD ER VISITS. RISK OF COMPLICATION AND/OR MORBIDITY OR MORTALITY OF PATIENT MANAGEMENT: NONE MEDICATIONS-PER MEDICATION RECONCILIATION NEED FOR HOSPITALIZATION: PATIENT DOES NOT MEET CRITERIA FOR HOSPITALIZATION. NEED FOR EMERGENCY MAJOR/MINOR SURGERY: NO THERE ARE NO SOCIAL CONCERNS WITH THIS PATIENT. PRESCRIPTION DRUG MANAGEMENT PRESCRIPTIONS WILL INCLUDE SYMPTOMATIC CARE PATIENT'S PRIOR EXTERNAL MEDICAL RECORDS FROM OTHER ER VISITS WERE REVIEWED BY ME INDICATED. PRIOR TESTING AND RESULTS FROM PREVIOUS VISITS WERE REVIEWED. PRIOR TESTS WERE TAKEN INTO ACCOUNT WITH MEDICAL DECISION MAKING AND RESOURCE U TILIZATION, INDEPENDENT HISTORIAN/HISTORIANS WERE USED TO OBTAIN COMPLETE MEDICAL HISTORY. I INDEPENDENTLY INTERPRETED THE TEST THAT WERE PERFORMED, RESULTS WERE REVIEWED BY ME AND CONSIDERED FINDINGS ON RADIOLOGY IF ORDERED. MEDICAL MANAGEMENT AND EXAMINATION INTERPRETATION DISCUSSIONS WERE HAD BY ME WITH OTHER QUALIFIED HEALTHCARE PROFESSIONALS INDICATED FOR THE PATIENT'S CA RE. ED Course Orders Procedure Category Date Status Time ,Urine Test LAB 11/29/24 Complete 12:52 12 Lead Ekg Tracing- EKG 11/29/24 Logged Technical 15:37 Vital Signs Date Time Temp Pulse Resp B/P (MAP) Pulse Ox O2 Delivery O2 Flow Rate FiO2 11/29/24 15:04 98.6 76 16 112/78 98 Room Air* 0 21 11/29/24 12:23 98.6 76 16 112/78 98 Room Air 0 DX & DISP Disposition: Discharge Departure Impression: Primary Impression: Fibrocystic changes of left breast Condition: Stable Scripts Naproxen (Naproxen) 500 Mg Tablet 1 TAB PO BID for pain for 7 Days, #14 TAB 0 Refills Prov: SAMMI FRANCO MD 11/29/24 Additional Instructions: FOLLOW-UP WITH PRIMARY CARE PROVIDER IN 1 TO 2 DAYS. TAKE MEDICATIONS DIRECTED HERE IN THE EMERGENCY ROOM. OKAY TO CONTINUE HOME MEDICATIONS UNLESS OTHERWISE DISCUSSED DURING YOUR VISIT IN THE EMERGENCY ROOM TODAY. RETURN TO YOUR NEAREST EMERGENCY ROOM IF SYMPTOMS WORSEN OR IF THERE IS NO IMPROVEMENT. CALL 911 IF YOU NEED IMMEDIATE ASSISTANCE. TAKE TYLENOL [id number] NEEDED AND IF NO CONTRAINDICATIONS ARE PRESENT. INCREASE ORAL HYDRATION. A WOUND CULTURE OR URINE CULTURE WAS ORDERED HERE IN THE EMERGENCY ROOM DEPARTMENT PLEASE FOLLOW-UP WITH PRIMARY CARE PROVIDER AND ADVISE THEM TO GET REPORTS FROM OUR FACILITY. IF YOU HAD ANY CAMI WRAP/SPLINTS THAT WERE APPLIED HERE, PLEASE DO NOT REMOVE THEM UNTIL YOU SEE YOUR PRIMARY CARE OR SPECIALTY. REFERRALS: Referrals: LAUREL VÁZQUEZ MD (PCP) Time of Disposition: 16:00 SAMMI FRANCO MD Nov 29, 2024 14:05
[2024-11-29 15:04] VITALS: BP 112/78; PULSE 76; RESP 16; TEMP 98.6; O2SAT 98
[2024-11-29] MEDS ORDERED: NAPR-1194 PO (16:01)
--- NOTE | 2024-11-29 16:21 | NUR ---
D/C PENDING MD PHYSICAL EXAM
--- NOTE | 2024-11-29 19:34 | EKG ---
[facility] Test Date: 2024-11-29 Test Time: 15:54:21 Pat Name: SHAJI CARRERA Department: ED Room: Gender: F Manager Educational: [id number] : 1985 Requested By: SAMMI FRANCO Order Number: [id number] Reading MD: Bhupinder William Measurements Intervals [place] Rate: 60 P: 78 CO: 138 QRS: 70 QRSD: 81 T: 53 QT: 429 QTc: 427 Interpretive Statements Sinus rhythm No previous ECG available for comparison Electronically Signed On 11-30-2024 15:36:32 CDT by Bhupinder William Please click the below link to view image of tracing.
== END 2024-11-29 16:34 | disposition home or self-care (01) ==
LOC: EDH 12:22
DX: N60.12 Diffuse cystic mastopathy of left breast (principal); J45.909 Unspecified asthma, uncomplicated; Z90.721 Acquired absence of ovaries, unilateral; Z79.899 Other long term (current) drug therapy
CPT/HCPCS: 99284; 81025; 96372; 93005; J1885

== ENCOUNTER 2024-12-08 00:06 | Emergency (ER) | payer SELFPAY ==
[~2024-12-08] VITALS: Ht 160 cm; Wt 54.4 kg
[~2024-12-08 00:06] MED LIST changes: +NAPR-1194 PO
[2024-12-08] MEDS ORDERED: ACET-2079 PO (00:17)
--- NOTE | 2024-12-08 00:19 | ERN ---
ED Note History of Present Illness Stated Complaint: BREAST PAIN Chief Complaint: Breast Problem Time Seen by : 00:09 Dictation: PATIENT IS A 39-YEAR-OLD FEMALE COMING IN VIA EMS WITH COMPLAINTS OF HAVING LEFT BREAST PAIN FOR ONE MONTH. SHE STATES SHE HAS ALREADY BEEN TO SEE HER PRIMARY CARE DOCTOR AT THE [facility] AND HAD AN ULTRASOUND DONE TWO WEEKS AGO. THE RESULTS ARE PENDING HOWEVER THE NURSE PRACTITIONER AT THE [facility], DID NOT REFER HER TO A SURGEON NOR DID SHE PROVIDE ANYTHING FOR PAIN. SHE STATES SHE WAS SEEN AT [facility] LAST WEEK AND WAS TREATED FOR PAIN WITH OXYCODONE HOWEVER THEY TOLD HER TO FOLLOW BACK UP WITH HER DOCTOR FOR THE RESULTS OF THE ULTRASOUND AND SURGICAL REFERRAL. SHE TOOK THE PAIN MEDICATIONS HOWEVER DID NOT GO SEE HER PRIMARY CARE PHYSICIAN. NO FEVER NO CHILLS NO NAUSEA VOMITING. Allergies: Coded Allergies: Ampicillin Sodium (Verified Allergy, 04/29/12) Sulbactam Sodium (Verified Allergy, 04/29/12) Home Meds Active Scripts Naproxen (Naproxen) 500 Mg Tablet, 1 TAB PO BID for pain for 7 Days, #14 TAB 0 Refills Prov:SAMMI FRANCO MD 11/29/24 Ibuprofen (Ibuprofen) 600 Mg Tablet, 600 MG PO Q6H PRN for PAIN, #12 TAB 0 Refills Prov:TRACY CARPENTER NP 10/02/24 Ondansetron (Ondansetron Odt) 4 Mg Tab.rapdis, 4 MG PO Q6HPRN PRN for nausea, #15 TAB 0 Refills Prov:TRACY CARPENTER NP 10/02/24 Clindamycin HCl (Clindamycin HCl) 300 Mg Capsule, 1 CAP PO TID for 7 Days, #21 CAP 0 Refills Prov:TRACY CARPENTER NP 10/02/24 Ondansetron (Ondansetron Odt) 4 Mg Tab.rapdis, 4 MG PO TIDP PRN for NAUSEA, #30 TAB 0 Refills Prov:BLADIMIR WILKINS MD 10/31/23 Doxycycline Monohydrate (Doxycycline Monohydrate) 100 Mg Capsule, 1 CAP PO BID for 10 Days, #20 CAP 0 Refills Prov:BLADIMIR WILKINS MD 10/31/23 Ibuprofen (Ibuprofen) 800 Mg Tablet, 800 MG PO Q8H PRN for PAIN, #30 TAB 0 Refills Prov:LINDA CARTAGENA REPAIRER SWITCHGEAR 10/28/23 Past Medical History Past Medical History: Asthma, Migraines Surgical History: Other Surgical History Other: LEFT OVARY REMOVED Social History: Negative, Lives with family History: Not Applicable RN Note Reviewed/Agreed w/PFSH: Yes Review of System Dictation CONSTITUTIONAL: NEGATIVE EXCEPT FOR HPI HEAD/FACE: NEGATIVE EXCEPT FOR HPI EENT: NEGATIVE EXCEPT FOR HPI RESPIRATORY: NEGATIVE EXCEPT FOR HPI LEFT BREAST PAIN, ONE MONTH GASTROINTESTINAL/ABDOMINAL: NEGATIVE EXCEPT FOR HPI GENITOURINARY: NEGATIVE EXCEPT FOR HPI MUSCULOSKELETAL: NEGATIVE EXCEPT FOR HPI INTEGUMENTARY: NEGATIVE EXCEPT FOR HPI NEUROLOGICAL/PSYCH: NEGATIVE EXCEPT FOR HPI HEMATOLOGIC/LYMPHATIC: NEGATIVE EXCEPT FOR HPI ALL SYSTEMS NEGATIVE, EXCEPT NOTED ABOVE. 13 POINT REVIEW OF SYSTEMS ASSESSED AND ALL NEGATIVE EXCEPT FOR ABOVE. Physical Exam Dictation VITAL SIGNS REVIEWED GENERAL APPEARANCE: ALERT, ORIENTED X 3, MODERATE ACUTE DISTRESS, WELL DEVELOPED, NOURISHED. HEAD AND FACE: NON-TRAUMATIC. EYES: PERRL, PINK CONJUNCTIVAS, EYELID NO TRAUMA, ANTERIOR CHAMBER WITH ARCUS SENILIS. EARS: PINNAS INTACT AND NO SIGNS OF TRAUMA OR ERYTHEMA EAR CANALS CLEAR AND NO DISCHARGE TM NO ERYTHEMA NOSE: NO DISCHARGE, NO BLEEDING. OROPHARYNX: MOUTH NORMAL, TONGUE PINK, PHARYNX CLEAR,NO ERYTHEMA, TONSILS NO EXUDATES, NO ABSCESSES NOTED, MUCOUS MEMBRANE MOIST NECK: SUPPLE, NON-TENDER, NO THYROMEGALY, NO MASSES, NO JVD, NO BRUITS BREAST:DEFERRED CHEST:NO TENDERNESS, NO CREPITUS, NO PARADOXICAL MOVEMENT, NO RETRACTIONS LUNGS:CLEAR, WELL-VENTILATED, SYMMETRIC, NO RALES, NO WHEEZING, NO RHONCHI, NO STRIDOR, GOOD BREATH SOUNDS BILATERALLY HEART: REGULAR RATE, REGULAR RHYTHM, NO MURMUR, NO GALLOPS VASCULAR: NO PERIPHERAL EDEMA, ABDOMEN: SOFT, POSITIVE BOWEL SOUNDS, NONDISTENDED, NO GUARDING, NONTENDER, NO REBOUND, NO MASSES NO HEPATOMEGALY, NO SPLENOMEGALY, NO MONAE'S SIGN, NO HERNIAS. RECTAL: DEFERRED GENITAL: DEFERRED NEUROLOGICAL: NORMAL SPEECH, MOTOR FUNCTION INTACT, SENSORY FUNCTION INTACT MUSCULOSKELETAL: NECK NONTENDER, FULL RANGE OF MOTION, BACK NONTENDER, FULL RANGE OF MOTION, EXTREMITIES: NONTENDER, FULL RANGE OF MOTION SKIN: COLOR PINK, DRY, NO TURGOR, NO RASH, NO LACERATIONS, NO ABRASIONS, NO CONTUSIONS. LYMPHATIC: DEFERRED Results (Laboratory/Radiology) Labs Reviewed?: Yes ED Course ED Course Orders Procedure Category Date Status Time Acetaminophen With PHA 12/08/24 Transmitted Codeine (Tylenol-Code 00:30 Ketorolac 60mg/2ml PHA 12/08/24 Transmitted (Toradol 60mg/2ml) 00:30 0012/EXPLAINED TO PATIENT THAT THERE IS NO NEED FOR IMAGING OR LABS AT THIS TIME. SHE WAS ADVISED THAT SHE WILL BE TREATED FOR CHRONIC MASTODYNIA GIVEN TORADOL AND TYLENOL NO. 3 TOLD HER TO FOLLOW BACK UP WITH [facility] FOR RESULTS OF HER ULTRASOUND ALSO WE WILL PROVIDE HER WITH THE NAME OF DR. FOREST COMER FOR REFERRAL TO A SURGEON. SHE TOLD ME THAT SHE WANTS KNOW WHAT IS WRONG WITH HER BREASTS TONIGHT, I EXPLAINED TO HER THAT I WOULD BE UNABLE TO PROVIDE THAT INFORMATION IN THE CONTEXT OF THE EMERGENCY ROOM. Medical Decision Making MDM MEDICAL DISCHARGE MAKING BASED ON PROVIDING ANALGESIA FOR CHRONIC LEFT BREAST PAIN. NO LABS OR IMAGING INDICATED. PATIENT HAS ALREADY HAD AN ULTRASOUND IN HIS PENDING RESULTS. SHE WILL BE GIVEN TORADOL AND TYLENOL NO. 3 IN THE EMERGENCY ROOM DISCHARGED HOME WITH HER MOTHER WITH TYLENOL NO. [address] FOREST COMER DX & DISP Disposition: Discharge Departure Impression: Primary Impression: Mastodynia of left breast Condition: Stable Scripts Acetaminophen with Codeine (Acetaminophen-Cod #3 Tablet) 300 Mg-30 Mg Tablet 1 TAB PO Q4H PRN for MODERATE TO SEVERE PAIN, #15 TAB 0 Refills Prov: LINDA CARTAGENA REPAIRER SWITCHGEAR 12/08/24 Additional Instructions: Follow-up with primary care provider in 1 to 2 days. Take medications as directed here in the emergency room. Okay to continue home medications unless otherwise discussed during your visit in the emergency room today. Return to your nearest emergency room if symptoms worsen or if there is no improvement. Call [phone] if you need immediate assistance. Take Tylenol or Motrin [id number] as needed and if no contraindications are present. Increase oral hydration. A wound culture or urine culture was ordered here in the emergency room department please follow-up with primary care provider and advise them to get repeat ports from our facility. If you had any Lalito wrap/splints eva t were applied here, please do not remove them until you see your primary care or specialty. Take Tylenol No. 3 as needed for your pain. Follow up with your primary care doctor tomorrow for the results of your breast ultrasound and call surgeon for an appointment. Referrals: LAUREL VÁZQUEZ MD (PCP) FOREST COMER MD Time of Disposition: 00:16 I have reviewed the case, and I agree with, Diagnosis and Plan LINDA CARTAGENA NP Dec 08, 2024 00:19
[2024-12-08 01:11] VITALS: BP 112/57; PULSE 75; RESP 18; TEMP 98.8; O2SAT 98
== END 2024-12-08 01:19 | disposition home or self-care (01) ==
LOC: EDH 00:06
DX: N64.4 Mastodynia (principal); J45.909 Unspecified asthma, uncomplicated; Z90.721 Acquired absence of ovaries, unilateral
CPT/HCPCS: 99283; 96372; J1885